=== PATIENT | female | born 1995 | race African-American/Black ===

== ENCOUNTER 2018-11-20 19:58 | Inpatient (IN) | payer MEDICAID ==
--- NOTE | 2018-11-20 22:54 | Ultrasound Report ---
PROCEDURE: US OB BPP WO NON-STRESS TECHNIQUE: ultrasound biophysical profile HISTORY: SUE COMPARISONS: Early limited ultrasound of the same date FINDINGS: Biophysical profile performed Breathing movements 2 movement 2 posture and tone 2 Amniotic fluid volume 0 Total score 6/8 cardiac activity present with heart rate of 143 bpm. Amniotic fluid index 4.5 cm IMPRESSION: Biophysical profile 6/8 Oligohydramnios . CTR2 protocol initiated at the time of this dictation This document is electronically signed by Luke Boyer MD., November 20 2018 10:52:07 PM ET
[2018-11-21] MEDS ORDERED: CERVIDIL VG ONE (00:35)
[2018-11-21] MEDS ORDERED: BRETHINE IVP PRN (00:35)
[2018-11-21] MEDS ORDERED: PHENERGAN PO PRN ×2 (00:35→14:55)
[2018-11-21] MEDS ORDERED: BRETHINE SUB-Q PRN (00:35)
[2018-11-21] MEDS ORDERED: AMPICILLIN/NS 2 GM/100 ML 2 GM/100 ML BAG IV ONE ×2 (00:35→13:00)
[2018-11-21] MEDS ORDERED: MINERAL OIL PO PRN (00:35)
[2018-11-21] MEDS ORDERED: ZOFRAN IV PRN ×2 (00:35→14:55)
[2018-11-21] MEDS ORDERED: XYLOCAINE 2% INFILTRATI ONE (00:35)
[2018-11-21] MEDS ORDERED: NARCAN 0.4 MG/1 ML IV PRN (00:35)
[2018-11-21 00:46] LABS: Hematocrit 35.6 % (30.3-42.9); Hemoglobin 11.9 gm/dl (10.1-14.3); Mean Corpuscular HGB Conc 34 % (30-34); Mean Corpuscular Volume 92 fl (79-97); Platelet Count 224 K/mm3 (140-440); Red Blood Count 3.85 M/mm3 (3.65-5.03); Red Cell Distribution Width 15.1 % (13.2-15.2)
--- NOTE | 2018-11-21 00:46 | History and Physical Report ---
History of Present Illness Date of examination: 11/21/18 Date of admission: 11/20/18 23:34 Chief complaint: "low Fluid" History of present illness: 23yo Fe MILENA 11/24/2018 ([place]) 39weeks 3days, sent from [facility] with [place] for Induction of labor. Pt has had late and limited care. She initiated care on 11/17/2018 (one week ago). Today she had her second visit with OBUS which revealed SUE 4.8 Oligohydramnios. EFW 8lbs 2oz at 39w3d. BPP 6/8. labs: Not available. 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 denies: smoking, alcohol abuse, prescription drug abuse, IV drug use - Obstetrical History Expected Date of Delivery: 11/24/18 Actual Gestation: 39 Week(s) 4 Day(s) : 3 Para: 2 Hx # Term Pregnancies: 2 Number of Pregnancies: 0 Spontaneous Abortions: 0 Induced : 0 Number of Living Children: 2 #1 Infant Gender: Female year: 2,[birth year] Birthweight: 3.147 kg Method of Delivery: Vaginal Gestational age at delivery: 40 Complications: none #2 Gender: Male year: 2,[birth year] Birthweight: 3.685 kg Method of Delivery: Vaginal Gestational age at delivery: 40 Complications: none Medications and Allergies Allergies Allergy/AdvReac Type Severity Reaction Status Date / Time No Known Allergies Allergy Verified 09/28/14 13:44 Home Medications Medication Instructions Recorded Confirmed Last Taken Type Pnv with Ca,No.72/Iron/FA 1 tab PO DAILY 02/09/16 02/09/16 Unknown History [ Plus Tablet] Active Meds: Active Medications Dinoprostone (Cervidil) 10 mg VG ONCE ONE Stop: 11/21/18 00:36 Ephedrine Sulfate (Ephedrine Sulfate) 10 mg IV Q2M PRN PRN Reason: Hypotension Ampicillin Sodium (Polycillin/Ns 2 Gm/100 Ml) 2 gm in 100 mls @ 100 mls/hr IV ONCE ONE; Protocol Stop: 11/21/18 01:34 Lactated Ringer's (Lactated Ringers) 1,000 mls @ 125 mls/hr IV DIRECT RON Lidocaine (Xylocaine 2%) 20 ml INFILTRATI ONCE ONE Stop: 11/21/18 00:36 Mineral Oil (Mineral Oil) 30 ml PO QHS PRN PRN Reason: Constipation Review of Systems Eyes: normal appearance Cardiovascular: no chest pain, no shortness of breath Respiratory: no shortness of breath Breasts: normal Gastrointestinal: no abdominal pain, no nausea, no vomiting, no diarrhea, no constipation Genitourinary: normal appearance, no vaginal bleeding, no leakage of fluid, no pelvic pain, no genital sores Integumentary: no rash, no sores, no lesions Neurological: other (Denies) Psychiatric: depression (History of Depression; no meds) - Vital Signs Vital signs: Vital Signs Pulse BP 81 112/58 11/20/18 20:53 11/20/18 20:53 Temp Pulse Resp BP Pulse Ox 97.2 F L 75 20 107/57 11/20/18 23:49 11/20/18 23:33 11/20/18 23:49 11/20/18 23:33 - Physical Exam Breasts: Positive: normal Cardiovascular: Regular rate, Normal S1, Normal S2, No murmurs Lungs: Positive: Clear to auscultation, Normal air movement Abdomen: Positive: normal appearance, soft, normal bowel sounds. Negative: distention Genitourinary (Female): Positive: normal external genitalia, normal perenium Vulva: both: normal Vagina: Positive: normal moisture Uterus: Positive: enlarged (Gravid) Anus/Rectum: Positive: normal perianal skin Extremities: Positive: normal Deep Tendon Reflex Grade: Normal +2 - Obstetrical FHR: category 1 Uterine Contraction Monitor Mode: External Cervical Dilatation: 1 Cervical Effacement Percentage: 50 station: -2 Uterine Contraction Pattern: Absent Uterine Tone Measurement Phase: Resting Results All other labs normal. Assessment and Plan A: IUP at 39w4d Late and limited care (2 visits) Oligohydramnios (SUE 4.8 in office/4.5 repeat US on admission [facility]) BPP 6/8 Category 1 tracing GBS unknown P: Admit to L&D; Routine labor orders Prental labs Cervidil IOL GBS prophylaxis Anticipate
[2018-11-21] MEDS ORDERED: LACTATED RINGERS 1,000 ML IV SCH (01:00)
[2018-11-21] MEDS ORDERED: PITOCin/NS 20 UNIT/1000ML DRIP 20 UNITS/1,000 ML BAG IV SCH (01:00)
[2018-11-21 05:12] LABS: Hepatitis C Virus Antibody Non-Reactive (NonReactive)
--- NOTE | 2018-11-21 07:03 | Ultrasound Report ---
PROCEDURE: US OB LIMITED TECHNIQUE: ultrasound biophysical profile HISTORY: PTL COMPARISONS: Early limited ultrasound of the same date FINDINGS: Fetus is in cephalic presentation. Placenta is anterior and grade 2. There is no previa. cardiac activity present with heart rate of 143 bpm. Amniotic fluid index 4.5 cm IMPRESSION: Amniotic fluid index 4.5 cm This document is electronically signed by Bert Amezquita MD., November 21 2018 07:01:07 AM ET
[2018-11-21] MEDS ORDERED: SUBLIMAZE IV ONE (09:15)
[2018-11-21] MEDS ORDERED: STADOL IV PRN (10:30)
--- NOTE | 2018-11-21 12:04 | Event Note ---
Called to patient's room due to brisk vaginal bleeding. FHT Category II FHT, occasional variable decel. Patient is writhing in pain. Cervidil removed with vaginal exam. Cervix /-1. Membranes ruptured small amount of bright red blood released from sac. Plan: 1. Will monitor vaginal bleeding and progression of labor. 2. If bleeding increases, will proceed to primary section.
[2018-11-21] MEDS ORDERED: NARCAN 2 MG/2 ML IV PRN (12:12)
--- NOTE | 2018-11-21 12:12 | Anesthesia Consultation ---
Anesthesia Consult and Med Hx Date of service: 11/21/18 - Airway Anesthetic Teeth Evaluation: Good ROM Head & Neck: Adequate Mental/Hyoid Distance: Adequate Mallampati Class: Class II Intubation Access Assessment: Probably Good - Pre-Operative Health Status ASA Pre-Surgery Classification: ASA2 Proposed Anesthetic Plan: Epidural, Spinal - Pulmonary Hx Asthma: No COPD: No Hx Pneumonia: No - Cardiovascular System Hx Hypertension: No - Central Nervous System Hx Seizures: No Hx Psychiatric Problems: No - Endocrine Hx Renal Disease: No Hx End Stage Renal Disease: No Hx Hypothyroidism: No Hx Hyperthyroidism: No - Hematic Hx Anemia: No Hx Sickle Cell Disease: No - Other Systems Hx Alcohol Use: No
[2018-11-21] MEDS ORDERED: PITOCin/NS 30 UNIT/500ML 30 UNITS/500 ML BAG IV SCH (13:00)
[2018-11-21] MEDS ORDERED: fentaNYL-BUPIV 2 MCG/ML-0.125% 200 MCG/100 ML BAG EPIDURAL SCH (13:00)
[2018-11-21] MEDS ORDERED: BENADRYL PO PRN (14:55)
[2018-11-21] MEDS ORDERED: MILK OF MAGNESIA PO PRN (14:55)
[2018-11-21] MEDS ORDERED: DULCOLAX PR PRN (14:55)
[2018-11-21] MEDS ORDERED: NORCO 5/325 PO PRN ×2 (14:55→20:26)
[2018-11-21] MEDS ORDERED: LANSINOH TP PRN (14:55)
[2018-11-21] MEDS ORDERED: TUCKS PAD TP PRN (14:55)
[2018-11-21] MEDS ORDERED: SODIUM CHLORIDE FLUSH SYRINGE 10 ML IV NR (15:00)
[2018-11-21] MEDS ORDERED: IBUPROFEN PO SCH (15:00)
--- NOTE | 2018-11-21 15:16 | Procedure Note ---
OB Delivery Note - Delivery Date of Delivery: 11/21/18 (1410) Surgeon: TRISTON JAMES (CNM) Estimated blood loss: other (150 cc) - Vaginal Delivery presentation: vertex Delivery position: OA Intrapartum events: mult.variable deceleratio Delivery induction: none Delivery augmentation: rupture of membranes, pitocin Delivery monitor: external FHT, external uterine Route of delivery: Delivery placenta: spontaneous (at 1420) Delivery cord: nuchal cord, 3 umbilical vessels Episiotomy: none Delivery laceration: none Anesthesia: epidural Delivery comments: of viable male , placed immediately to maternal chest. Cord double clamped and cut by FOB after cessation of pulsation. Spontaneous delivery of placenta, hood with small abruption noted, disposed per hospital policy. Intact perineum, hemostasis maintained. Mother and baby stable and bonding well. - Infant A at 1 minute: 8 at 5 minutes: 9 Infant Gender: Male (Weight 7lbs 9oz, 18 inches long)
[2018-11-21] MEDS ORDERED: PRENATAL VITAMIN PO SCH (21:00)
[2018-11-21] MEDS: IBUPROFEN PO SCH (21:47)
[2018-11-22 01:27] LABS: Hemoglobin 10.9 gm/dl (10.1-14.3)
[2018-11-22] MEDS: IBUPROFEN PO SCH ×4 (03:01→18:34)
[2018-11-22] MEDS ORDERED: PRENATAL VITAMIN PO SCH (10:00)
[2018-11-22] MEDS ORDERED: LANSINOH TP PRN (10:35)
[2018-11-22] MEDS ORDERED: MILK OF MAGNESIA PO PRN (10:35)
[2018-11-22] MEDS ORDERED: DULCOLAX PR PRN (10:35)
[2018-11-22] MEDS ORDERED: BENADRYL PO PRN (10:35)
[2018-11-22] MEDS ORDERED: TUCKS PAD TP PRN (10:35)
[2018-11-22] MEDS ORDERED: SODIUM CHLORIDE FLUSH SYRINGE 10 ML IV NR (11:00)
--- NOTE | 2018-11-22 11:17 | Progress Note ---
Assessment and Plan A: day 1 S/P spontaneous vaginal delivery. Anemia secondary to and blood loss. P: Iron supplementation. Anticipate discharge tomorrow. Subjective - Subjective Date of service: 11/22/18 Principal diagnosis: day 1 S/P Interval history: day 1 S/P spontaneous vaginal delivery. Doing well. Reports small amount of lochia and no large clots. Patient denies chest pain, cough, shortness of breath, leg pain, abdominal pain. Voiding without difficulty, ambulating well, tolerating a regular diet. Patient reports: appetite normal, voiding normally, pain well controlled, flatus, ambulating normally, no dizzy ambulation, no nauseated : doing well Objective - Vital Signs Latest vital signs: Vital Signs Temp Pulse Resp BP BP Pulse Ox 11/22/18 09:21 97.6 F 88 20 114/60 97 11/21/18 23:20 98.3 F 84 16 96/48 96 11/21/18 20:00 98.2 F 75 14 101/54 99 11/21/18 16:46 82 18 115/48 99 11/21/18 16:45 98.0 F 78 18 115/48 11/21/18 14:16 77 90 11/21/18 14:12 94 H 100 11/21/18 14:09 70 135/72 11/21/18 14:08 144 H 94 11/21/18 14:06 68 100/58 11/21/18 14:03 51 L 84 11/21/18 13:58 100 H 107/62 100 11/21/18 13:56 79 131/59 11/21/18 13:53 75 100 11/21/18 13:51 66 115/58 11/21/18 13:50 64 107/57 11/21/18 13:48 64 114/52 100 11/21/18 13:46 62 112/77 11/21/18 13:43 72 100/56 100 11/21/18 13:41 71 99/57 11/21/18 13:40 76 94/52 11/21/18 13:38 71 100 11/21/18 13:37 87 102/65 11/21/18 13:35 63 100/59 11/21/18 13:33 59 L 100/59 100 11/21/18 13:31 84 97/55 11/21/18 13:30 74 96/54 11/21/18 13:28 89 100 11/21/18 13:27 71 107/58 11/21/18 13:25 78 105/58 11/21/18 13:23 72 98/56 100 11/21/18 13:22 75 98/54 11/21/18 13:20 67 98/59 11/21/18 13:18 97 H 99/53 100 11/21/18 13:16 72 93/54 11/21/18 13:13 89 100 11/21/18 13:12 69 94 11/21/18 13:10 111 H 117/59 11/21/18 13:08 75 120/71 100 11/21/18 13:05 62 92/46 11/21/18 13:03 68 100 11/21/18 13:00 79 L 11/21/18 12:58 63 118/53 99 11/21/18 12:56 66 103/64 11/21/18 12:54 66 98/57 11/21/18 12:53 74 99 11/21/18 12:52 100 H 91/53 11/21/18 12:50 79 104/52 11/21/18 12:48 80 114/58 98 11/21/18 12:46 93 H 114/58 11/21/18 12:44 82 111/54 11/21/18 12:43 91 H 100 11/21/18 12:42 81 117/57 11/21/18 12:40 100 H 119/58 11/21/18 12:38 77 112/57 100 11/21/18 12:36 71 115/58 11/21/18 12:34 74 109/58 11/21/18 12:33 65 99 11/21/18 12:32 65 106/58 11/21/18 12:30 64 119/58 11/21/18 12:28 72 134/67 99 11/21/18 12:26 79 113/65 11/21/18 12:24 71 114/57 11/21/18 12:23 97 H 99 11/21/18 12:22 78 114/56 Intake and Output 11/21/18 11/22/18 11/22/18 23:59 07:59 15:59 Output Total 300 Balance -300 Output: Urine 300 Void 300 Other: Total, Output Amount 300 - Exam Cardiovascular: Present: Regular rate, Normal S1, Normal S2 Lungs: Present: Clear to auscultation Abdomen: Present: normal appearance, soft. Absent: distention, tenderness, guarding, rigidity Uterus: Present: normal, firm, fundal height below umbilicus. Absent: bogginess, tenderness Extremities: Present: normal. Absent: tenderness, edema
[2018-11-22] MEDS: FEOSOL PO SCH (17:59)
[2018-11-23 00:01] LABS: Hematocrit 27.7 % (30.3-42.9); Hemoglobin 9.6 gm/dl (10.1-14.3)
[2018-11-23] MEDS: IBUPROFEN PO SCH ×3 (00:57→10:38)
[2018-11-23] MEDS: FEOSOL PO SCH ×2 (00:57→10:29)
--- NOTE | 2018-11-23 13:00 | Progress Note ---
Assessment and Plan A: day 2 S/P spontaneous vaginal delivery. Anemia secondary to and blood loss. P: Discharge patient home today. discharge instructions and warning signs discussed in detail with patient. Advised patient to continue taking her vitamins and iron supplements at home. Advised patient to avoid intercourse, lifting and heavy housework, and driving. Advised patient to call OB office and make a follow up appointment to be seen in 6 weeks for exam. Patient voiced understanding of all instructions. Subjective - Subjective Date of service: 11/23/18 Principal diagnosis: day 2 S/P Interval history: day 2 S/P spontaneous vaginal delivery. Doing well. Reports small amount of lochia and no large clots. Patient denies chest pain, cough, shortness of breath, leg pain, abdominal pain. Voiding without difficulty, ambulating well, tolerating a regular diet. Patient desires discharge today. Patient reports: appetite normal, voiding normally, pain well controlled, flatus, ambulating normally, no dizzy ambulation, no nauseated : doing well Objective - Vital Signs Latest vital signs: Vital Signs Temp Pulse Resp BP Pulse Ox 11/23/18 10:38 16 11/23/18 08:54 97.7 F 79 20 108/74 98 11/22/18 23:18 98.4 F 68 15 105/62 98 11/22/18 21:52 18 11/22/18 17:42 98.7 F 80 20 111/60 97 11/22/18 12:38 98.4 F 78 20 107/46 98 Intake and Output 11/22/18 11/23/18 11/23/18 22:59 07:59 15:59 Intake Total Balance Intake: Oral Other: Total, Intake Amount # Voids Void # Bowel Movements - Exam Cardiovascular: Present: Regular rate, Normal S1, Normal S2, No murmurs Lungs: Present: Clear to auscultation Abdomen: Present: normal appearance, soft. Absent: distention, tenderness, guarding, rigidity Uterus: Present: normal, firm, fundal height below umbilicus. Absent: bogginess , tenderness Extremities: Present: normal. Absent: tenderness, edema - Labs Labs: Abnormal lab results 11/22/18 Range/Units 23:20 Hgb 9.6 L (10.1-14.3) gm/dl Hct 27.7 L (30.3-42.9) %
--- NOTE | 2018-11-23 13:03 | Discharge Summary ---
Providers - Providers Date of Admission: 11/20/18 23:34 Date of discharge: 11/23/18 Attending physician: VIOLET MABRY MD None Primary care physician: VIOLET MABRY MD Hospitalization Reason for admission: induction of labor Delivery: Episiotomy: none Other procedures: none complications: none Discharge diagnosis: IUP at term delivered baby: male Pertinent studies: Labs Hospital course: Stable hospital course. Condition at discharge: Good Disposition: DC-01 TO HOME OR SELFCARE Plan - Provider Discharge Summary Activity: routine, no sex for 6 weeks, no heavy lifting 4 weeks, no strenuous exercise Diet: routine Instructions: routine Additional instructions: Continue taking your vitamins and iron supplements at home. Call your doctor immediately for: * Fever > 100.5 * Heavy vaginal bleeding ( >1 pad per hour) * Severe persistent headache * Shortness of breath * Reddened, hot, painful area to leg or breast - Follow up plan Follow up: VIOLET MABRY MD [Primary Care Provider] - 6 Weeks
[2018-11-23 18:31] VITALS: BP 116/75
== END 2018-11-23 17:44 | disposition home or self-care (01) | DRG 775 ==
LOC: TRG 19:58 → LD 23:34 → OB 11-21 17:01
PROVIDERS: ADMIT Obstetrics & Gynecology; ATTEND Obstetrics & Gynecology
PROC: 10E0XZZ Delivery of Products of Conception, External Approach (ICD-10-PCS; principal; 2018-11-21)
PROC: 3E0R3BZ Introduction of Anesthetic Agent into Spinal Canal, Percutaneous Approach (ICD-10-PCS; 2018-11-21)
PROC: 00HU33Z Insertion of Infusion Device into Spinal Canal, Percutaneous Approach (ICD-10-PCS; 2018-11-21)
DX: O76 Abnormality in fetal heart rate and rhythm complicating labor and delivery (principal); O69.81X0 Labor and delivery complicated by cord around neck, without compression, not applicable or unspecified; O41.03X0 Oligohydramnios, third trimester, not applicable or unspecified; Z3A.39 39 weeks gestation of pregnancy; Z37.0 Single live birth
CPT/HCPCS: 36415; 76815; 76819; 85014; 85018; 85027; 85660; 86592; 86706; 86762; 86803; 86850; 86900; 86901; 87806; G0378; J0290; J0595; J2590; J3010; J7120